=== PATIENT | female | born 1995 | race Caucasian/White ===

== ENCOUNTER 2018-06-05 02:43 | Emergency (ER) | payer SELFPAY ==
[2018-06-05 02:46] VITALS: BP 148/81; PULSE 108; RESP 18; TEMP 36.9; O2SAT 97; BMI 43.4
[2018-06-05 02:49] VITALS: O2SAT 99
[2018-06-05 03:00] VITALS: O2SAT 100
[2018-06-05 03:01] VITALS: RESP 18; O2SAT 99
--- NOTE | 2018-06-05 03:05 | EKG12_ITS ---
Test Reason : SOB Blood Pressure : / mmHG Vent. Rate : 107 BPM Atrial Rate : 107 BPM P-R Int : 150 ms QRS Dur : 086 ms QT Int : 330 ms P-R-T Axes : 033 051 039 degrees QTc Int : 440 ms Sinus tachycardia Otherwise normal ECG Confirmed by CORINNA COLLADO, KUN ([id number]), editorial assistant AIDEN BELLA ([id number] on 06/07/2018 1:16:55 PM Referred By: MARCE Confirmed By:KUN WEINSTEIN MD
[2018-06-05 03:28] VITALS: PULSE 123; RESP 18
[2018-06-05] MEDS: Ipratropium/Albuterol Sulfate 3 ML AMPUL.NEB INHALATION (03:28)
[2018-06-05] MEDS: Albuterol 2.5 MG/3 ML VIAL.NEB. INHALATION ×3 (03:28)
[2018-06-05 03:53] LABS: Absolute Lymphocyte Count 2.92 X10^3/ul (0.83-4.51); Absolute Neutrophil Count 10.7 X10^3/uL (2.0-7.7); Basophil# 0.07 X10^3/uL; Basophil% 0.5 % (0-1); Eosinophils% 1.3 % (0-5); Hematocrit 39.1 % (37-47); Hemoglobin 13.4 g/dl (12.0-15.0); Lymphocyte # 2.92 X10^3/ul (4.0); Lymphocyte % 19.5 % (19-41); Mean Corp Hgb Conc 34.3 g/gl (32-36); Mean Corpuscular Hgb 28.8 pg (27.0-32.0); Mean Corpuscular Volume 84.1 fL (81-99); Mean Platelet Vol. 10.7 fl (6.2-12.0); Monocyte# 1.07 X10^3/uL; Monocyte% 7.1 % (0-10); Neutrophil # 10.67 X10^3/uL (2.7-7.7); Neutrophil % 71.3 % (47-70); POSITIVE COUNT NO; POSITIVE DIFFERENTIAL NO; POSITIVE MORPHOLOGY NO; Platelet Count 278 K/mm3 (150-450); RBC Distribution Width CV 12.4 % (11.6-14.6); RBC Distribution Width SD 37.7 fl (35.1-43.9); Red Blood Count 4.65 M/mm3 (4.2-5.4)
[2018-06-05 04:03] LABS: D-Dimer Quantitative (DVT/PE) 0.39 FEU/ug/m (0.27-0.49)
[2018-06-05 04:05] LABS: Anion Gap 10 (5-15); BUN 18 mg/dL (7-18); BUN/Creat Ratio 19.8 RATIO (10-20); Calcium,Total 8.9 mg/dL (8.5-10.1); Chloride 104 mmol/L (98-107); Creatinine, Serum 0.91 mg/dL (0.55-1.02); EST Glomerular Filtration Rate 80 mL/min (>60); Est Glom Filt Rate - Afr Amer 97 mL/min (>60); Estimated Creatinine Clearance 85.78 ml/min; Glucose 122 mg/dL (74-106); Potassium 3.6 mmol/L (3.5-5.1); Sodium Level 141 mmol/L (136-145)
[2018-06-05 04:11] LABS: Pregnancy, Serum, hCG Quali. NEGATIVE Negative (0-9 Nonpreg)
--- NOTE | 2018-06-05 04:35 | ED.DEP ---
ED Disposition - Plan for ED Patient: Chief Complaint: Shortness of Breath Instructions: ED Upper Resp Infec No Abx Tx Referrals: Care Physician,No Primary [Primary Care Provider] - Ibis Domínguez MD [STAFF PHYSICIAN] -
--- NOTE | 2018-06-05 04:37 | ED.VISSUMM ---
- ER Visit Summary Date of Service: 06/05/18 Chief Complaint: Shortness of breath, cough History of Present Illness: The patient is a 22 F presenting with shortness of breath, cough. Patient states this started earlier tonight. She has had a dry cough. She denies fever. Denies chest pain. No PE/DVT risk factors. She has had similar symptoms in the past, denies history of asthma. No other complaints. Physical Examination: Vitals are stable. Patient is afebrile. Alert no acute distress. 99% on room air HEENT exam is unremarkable. Neck is supple. Lungs are expiratory wheezing bilaterally. Heart is regular and tachycardic Abdomen is soft nontender nondistended. Extremities are unremarkable. Skin is warm and dry. No focal neurologic deficit. Remainder of exam is unremarkable. Emergency Department Course and Treatment: Patient given albuterol Atrovent aerosols with improvement. Chest x-ray shows no acute process. CBC shows white count of 15.0. Chemistries unremarkable. D-dimer is negative. HCG negative. EKG is sinus rate of 107. Following aerosol treatments, patient feels much improved. She is requesting to go home. Her lungs are clear to auscultation bilaterally. She is advised to follow-up with Dr. Domínguez communications editor for no doc. Advised to return to ED for any worsening complaints. Disposition: Discharge home Impression: URI This note was generated with ibeatyou dictation software. It may contain incorrect words, spelling, and punctuation that were not noted in review of the chart prior to signing ED Disposition - Plan for ED Patient: Chief Complaint: Shortness of Breath Instructions: ED Upper Resp Infec No Abx Tx Referrals: Ibis Domínguez MD [STAFF PHYSICIAN] - Care Physician,No Primary [Primary Care Provider] -
[2018-06-05 04:59] VITALS: BP 153/74; PULSE 127; RESP 20; O2SAT 97
--- NOTE | 2018-06-06 13:56 | CM.ED ---
ED CALLBACK: Follow-up call placed to patient with no answer. Voicemail left with return contact information.
== END 2018-06-05 05:00 | disposition home or self-care (01) ==
LOC: ED 04:01
PROVIDERS: Emergency Provider Emergency Medicine
DX: J06.9 Acute upper respiratory infection, unspecified (principal)
CPT/HCPCS: 71045; 80048; 84703; 85025; 85379; 93005; 94640; 94760; 99285; A4216

== ENCOUNTER → 2022-02-09 | Outpatient (CLI) | payer MEDICAID, SELFPAY ==
[2022-02-09 15:43] LABS: Amphetamine Urine VISTA NEGATIVE (<1000 ng/mL); Barbiturate Urine VISTA NEGATIVE (< 200 ng/mL); Benzodiazepine Urine VISTA NEGATIVE (< 200 ng/mL); Cocaine Urine VISTA NEGATIVE (< 300 ng/mL); Ecstacy Urine VISTA NEGATIVE (< 500 ng/mL); Methadone Urine VISTA NEGATIVE (< 300 ng/mL); PCP Urine VISTA NEGATIVE (< 25 ng/mL); THC Urine VISTA POSITIVE (< 50 ng/mL); Vista UDS pH Range 4
[2022-02-12 06:08] LABS: Chlamydia By Nucleic Acid AMP Negative (Negative)
[2022-02-12 16:35] LABS: Gonococcus By Nucleic Acid AMP Negative (Negative)
[2022-02-13 16:17] LABS: HPV Reflexed? NOT INDICATED
== END | disposition home or self-care (01) ==
LOC: LABSPEC 02-10 06:47
PROVIDERS: Referring Provider Obstetrics & Gynecology; Visit Provider Obstetrics & Gynecology
DX: Z34.90 Encounter for supervision of normal pregnancy, unspecified, unspecified trimester (principal)
CPT/HCPCS: 80307; 87086; 87088; 87491; 87591; 88175; G0145

== ENCOUNTER → 2022-03-09 | Outpatient (CLI) | payer MEDICAID, SELFPAY ==
[2022-03-09 16:02] LABS: Absolute Lymphocyte Count 2.47 X10^3/uL (0.83-4.51); Absolute Neutrophil Count 9.9 X10^3/uL (2.0-7.7); Basophil# 0.05 X10^3/uL; Basophil% 0.4 % (0-1); Eosinophil# 0.38 X10^3/uL; Eosinophils% 2.8 % (0-5); Hematocrit 37.7 % (37-47); Hemoglobin 13.2 g/dL (12.0-15.0); Lymphocyte # 2.47 X10^3/ul (0.83-4.51); Lymphocyte % 18.2 % (19-41); Mean Corpuscular Volume 85.7 fL (81-99); Mean Platelet Vol. 11.2 fl (6.2-12.0); Monocyte# 0.71 X10^3/uL; Monocyte% 5.2 % (0-10); NRBC Flagged by Analyzer 0 % (0-5); Neutrophil # 9.93 X10^3/uL (2.7-7.7); Platelet Count 300 K/mm3 (150-450); RBC Distribution Width CV 12.9 % (11.6-14.6); RBC Distribution Width SD 39.8 fl (35.1-43.9); White Blood Count 13.6 K/mm3 (4.4-11.0)
[2022-03-09 16:10] LABS: Glucose Challenge Gest 1H 50g 147 mg/dL (70-140)
[2022-03-09 17:18] LABS: HIV - WCH Non-Reactive (Nonreactive); Hepatitis B Surface Antigen Non-Reactive (Nonreactive); Hepatitis C Antibody Non-Reactive (Nonreactive); Rubella IgG Reactive (Nonreactive); Syphilis Antibodies Non-reactive
[2022-03-09 17:20] LABS: NATERA MAILED SPECIMEN
== END | disposition home or self-care (01) ==
LOC: PAVLAB 15:09
PROVIDERS: Referring Provider Obstetrics & Gynecology; Visit Provider Obstetrics & Gynecology
DX: Z34.81 Encounter for supervision of other normal pregnancy, first trimester (principal); Z31.430 Encounter of female for testing for genetic disease carrier status for procreative management
CPT/HCPCS: 36415; 82950; 85025; 86703; 86762; 86780; 86803; 86850; 86900; 86901; 87340

== ENCOUNTER → 2022-03-16 | Outpatient (CLI) | payer MEDICAID, SELFPAY ==
[2022-03-16 10:44] LABS: Glucose GTT-Gestation. Fasting 97 mg/dL (<105)
[2022-03-16 13:30] LABS: Glucose GTT-Gestational 2 Hr 161 mg/dL (<165)
[2022-03-16 13:30] LABS: Glucose GTT-Gestational 1 Hr 165 mg/dL (<190)
[2022-03-16 13:52] LABS: Glucose GTT-Gestational 3 Hr 107 L (<145)
== END | disposition home or self-care (01) ==
LOC: LAB 10:02
PROVIDERS: Referring Provider Obstetrics & Gynecology; Visit Provider Obstetrics & Gynecology
DX: Z13.1 Encounter for screening for diabetes mellitus (principal)
CPT/HCPCS: 36415; 82951; 82952

== ENCOUNTER 2022-03-23 15:49 | Outpatient (RCR) | payer MEDICAID, SELFPAY | END 2022-03-26 23:59 | LOC: DC 15:49 | PROVIDERS: Visit Provider Obstetrics & Gynecology | DX: O24.419 Gestational diabetes mellitus in pregnancy, unspecified control (principal); Z3A.00 Weeks of gestation of pregnancy not specified | CPT/HCPCS: 97802 ==

== ENCOUNTER → 2022-03-23 | Outpatient (CLI) | payer MEDICAID, SELFPAY ==
--- NOTE | 2022-03-23 09:19 | EKG12_ITS ---
Test Reason : GEST DIABETES Blood Pressure : / mmHG Vent. Rate : 089 BPM Atrial Rate : 089 BPM P-R Int : 144 ms QRS Dur : 082 ms QT Int : 370 ms P-R-T Axes : 024 034 025 degrees QTc Int : 450 ms Normal sinus rhythm Normal ECG Confirmed by OLEGARIO COLLADO, PAULINE ([id number]), design editor VONDA JUSTIN ([id number]) on 03/24/2022 8:29:15 AM Referred By: Leonor Finch Confirmed By:PAULINE MELVIN MD
[2022-03-23 10:55] LABS: Hemoglobin A1c 5.5 % (3.8-5.6)
== END | disposition home or self-care (01) ==
PROVIDERS: Referring Provider Obstetrics & Gynecology; Visit Provider Obstetrics & Gynecology
DX: O24.419 Gestational diabetes mellitus in pregnancy, unspecified control (principal); Z3A.00 Weeks of gestation of pregnancy not specified
CPT/HCPCS: 36415; 83036; 93005

== ENCOUNTER 2022-04-13 13:00 | Outpatient (RCR) | payer MEDICAID, SELFPAY | END 2022-04-26 23:59 | LOC: DC 13:00 | PROVIDERS: Visit Provider Obstetrics & Gynecology | DX: O24.419 Gestational diabetes mellitus in pregnancy, unspecified control (principal); Z3A.00 Weeks of gestation of pregnancy not specified | CPT/HCPCS: 97803 ==

== ENCOUNTER 2022-06-27 20:16 | Inpatient (IN) | payer MEDICAID, SELFPAY ==
[2022-06-27] VITALS (9 sets, daily range): BP systolic 114–123; BP diastolic 59–65; PULSE 78–89; RESP 15–18; TEMP 36.4–36.6; O2SAT 93–99
[2022-06-27 20:57] LABS: Hematocrit 31.4 % (37-47); Hemoglobin 10.3 g/dL (12.0-15.0); Mean Corp Hgb Conc 32.8 g/dL (32-36); Mean Corpuscular Hgb 29.6 pg (27.0-32.0); Mean Corpuscular Volume 90.2 fL (81-99); Mean Platelet Vol. 11.1 fl (6.2-12.0); Platelet Count 283 K/mm3 (150-450); RBC Distribution Width CV 12.9 % (11.6-14.6); RBC Distribution Width SD 42.1 fl (35.1-43.9); Red Blood Count 3.48 M/mm3 (4.2-5.4); White Blood Count 21.1 K/mm3 (4.4-11.0)
--- NOTE | 2022-06-27 21:00 | RAD_ITS ---
STUDY: X-RAY - ABDOMEN/PELVIS REASON FOR EXAM: Female, 26 years old. Post surgery no pre count done TECHNIQUE: Single AP view of the abdomen / pelvis. COMPARISON: None. RAD/Abdomen Single View (Portable) IMPRESSION: No radiopaque foreign body. Partially visualized bowel gas pattern is nonobstructive. Electronically Signed: Deshaun Duron MD at 23:30 EDT ,
[2022-06-27 21:06] LABS: Partial Thromboplast Time 30.8 Seconds (24.1-36.2)
--- NOTE | 2022-06-27 21:12 | HP.PCM.OB_ITS ---
HPI - General General Date of Admission: 06/27/22 HPI Narrative LUZ MARIA BARRIOS, is a 26 F who presents with acute vaginal bleeding and upon initial evaluation heart rate was noted to be in the 70s therefore the patient was taken back immediately for an emergent delivery. Patient states that she had some spotting early in the day and then this evening bleeding got heavier and she started having regular cramping so she presented to the hospital for evaluation. Maternal Data Information ADAL Calculator Estimated Delivery Date Method Current WG Current Estimate 09/25/22 Ultrasound #1 27w 1d Other Estimates 09/12/22 LMP (Certain) 29w 0d PFSH PFSH Medical History Abnormal glucose affecting Cat scratch of cheek Marijuana abuse Home Medications prenat.vits,glory,yep-vxpf-hvikj 1 tab PO DAILY 02/02/22 [History Last Taken Unknown] Allergy/AdvReac Type Severity Reaction Status Date / Time pecan nut AdvReac Anaphylaxis Verified 05/04/22 14:06 Family History Brother Asthma Hemophilia Grandmother Diabetes Surgical History History of tonsillectomy Social History adopted: No household members: spouse current occupational status: employed current occupation: [employer] pets and animals: No Smoking Status: Never smoker alcohol intake: never substance use type: marijuana and other details: not since caffeine: Yes (limited since ) do you feel safe at home: Yes additional social history: Duglas Willoughbyfrancisco-spouse History 1 Elective abortions Hx Para Spontaneous abortions Hx # Term Pregnancies Ectopic pregnancies Hx # Pregnancies Multiple births # of living children Visit Details Expected Delivery Route/Plan Labor Preferences- CB/BF classes: [] labor support person: [] labor intervention preferences: [] pain management options preferred: [] cut cord/dad catch: [] : [] PP control planned: [] discussed possible routes of delivery and associated risks: [] special requests: [] Plans Covid status: discussed Flu vaccine: discussed Tdap vaccine: [] Rhogam: [] LARC form signed: [] Problem list reviewed and updated with the most current plan of care details and appropriate orders placed. Relevant counseling for the gestational age provided. Continue routine care and follow up unless otherwise noted in visit notes/problem list details OB Flowsheet Initial Weight: Not Recorded Date -?-?-?-?-?-?-?-?-?-?-?-?- EGA Weight BP Urine Prot -?-?-?-?-?-?-?-?-?-?-?-?- Glucose FHR FuHt Pres Dilation -?-?-?-?-?-?-?-?-?-?-?-?- Effaced St Visit Note 02/09/22 -?-?-?-?-?-?-?-?-?-?-?-?- 7w 3d 244 lb 134/84 -?-?-?-?-?-?-?-?-?-?-?-?- 150 -?-?-?-?-?-?-?-?-?-?-?-?- SM- no vb lof go od fm no regular ctx SM- CRL 1.16cm NOT cons with LMP 03/09/22 -?-?-?-?-?-?-?-?-?-?-?-?- 11w 3d 244 lb 120/82 -?-?-?-?-?-?-?-?-?-?-?-?- 170 -?-?-?-?-?-?-?-?-?-?-?-?- SM- no vb crampi ng 04/06/22 -?-?-?-?-?-?-?-?-?-?-?-?- 15w 3d 230 lb 8 oz 126/64 Nega tive -?-?-?-?-?-?-?-?-?-?-?-?- Negative 157 -?-?-?-?-?-?-?-?-?-?-?-?- MH-No VB. Feels well. FOB having genetic testing today. MFM US ordered. 05/04/22 -?-?-?-?-?-?-?-?-?-?-?-?- 19w 3d 226 lb 8 oz 110/74 Nega tive -?-?-?-?-?-?-?-?-?-?-?-?- Negative 150 -?-?-?-?-?-?-?-?-?-?-?-?- SM- no vb lof go od fm no regular ctx discussed treatment center referral due to factor IX deficiency carrier and having a boy, genetic screening needed 06/05/22 -?-?-?-?-?-?-?-?-?-?-?-?- 24w 0d 218 lb 124/76 -?-?-?-?-?-?-?-?-?-?-?-?- 155 24 -?-?-?-?-?-?-?-?-?-?-?-?- SM- no vb lof go od fm no regular ctx SM- no vb lof good fm no reg ular ctx BS well controlled. SM- no vb lof good fm no reg ular ctx BS well controlled. discussed weight loss and calorie counting, macro. discussed WILEY due to possibility of hemophilia. 06/27/22 -?-?-?-?-?-?-?-?-?-?-?-?- 27w 1d -?-?-?-?-?-?-?-?-?-?-?-?- -?-?-?-?-?-?-?-?-?-?-?-?- NST FHR Rate Baby A Baseline: 75 confirmed to be 60 in OR on US Accelerations:: None Decelerations:: Prolonged NST Reactive:: Non-Reactive FHR Category:: Category III Uterine Activity:: not able to discern ROS Constitutional Constitutional: Reports systems reviewed and no addt'l complaints, except as documented ENT HEENT: Reports systems reviewed and no addt'l complaints, except as documented Cardiovascular Cardiovascular: Reports systems reviewed and no addt'l complaints, except as documented Respiratory/Chest Respiratory/Chest: Reports systems reviewed and no addt'l complaints, except as documented Gastrointestinal Gastrointestinal: Reports systems reviewed and no addt'l complaints, except as documented and nausea; Denies abdominal pain Genitourinary Genitourinary: Reports systems reviewed and no addt'l complaints, except as documented, contractions Details: present and frequency (regular ) and movement Details: present Musculoskeletal Musculoskeletal: Reports systems reviewed and no addt'l complaints, except as documented Integumentary Integumentary: Reports as per HPI Neurologic Neurologic: Reports systems reviewed and no addt'l complaints, except as documented Endocrine Endocrinology: Reports systems reviewed and no addt'l complaints, except as documented Vital Signs Vital Signs Vital Signs: 06/27/22 20:05 06/27/22 20:05 Pulse Rate 79 Pulse Ox 98 Physical Exam Const alert, oriented x3 and healthy appearing Constitutional Narrative: uncomfortable with contractions HEENT normocephalic and moist oral mucous membranes Head and Scalp: atraumatic Lymph Lymphatic: no lymphadenopathy noted Chest inspection of chest normal Resp normal respiratory effort Cardio regular rate GI soft to palpation and non-tender Psych mental status grossly normal Labs Labs Labs: Blood Type A POSITIVE Antibody Screen NEGATIVE Hct 31.4 % (37-47) L Hgb 10.3 g/dL (12.0-15.0) L Syphilis Total Ab Non-reactive Rubella IgG Antibody Reactive (Nonreactive) Hep Bs Antigen Non-Reactive (Nonreactive) Chlamydia DNA (JUSTIN) Negative (Negative) Neisseria gonorrhoeae DNA (JUSTIN) Negative (Negative) HIV 1&2 Antibody Non-Reactive (Nonreactive) Glucose 1 Hr 50 gm 147 mg/dL (70-140) H Assessment & Plan (1) Supervision of high-risk : COMMENT: PRR ADAL:09/25/22 boy Sp:Duglas Harris (2) 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 recommend delivery in [place].. s/p genetic counseling with treatment center since having a boy, may limit delivery modality. await recommendations. FOB tested 04/06/22 neg. 09/07 (3) Diabetes: COMMENT: diet controlled. Dx 1TM. Stable. Seeing Dr Tang (4) Marijuana abuse: COMMENT: Positive 02/09/22 (5) Family history of defect: COMMENT: FOB club foot (6) Obesity affecting : COMMENT: 1 tm GCT, encouraged healthy weight gain (7) : QUALIFIERS: Weeks of gestation: 24 weeks Qualified Code(s): Z3A.24 - 24 weeks gestation of COMMENT: nl anatomy, Positive IX def gene. s/p genetic counseling. (8) labor in second trimester: (9) Placental abruption in second trimester: (10) Status post emergency section: COMMENT: 27 week acute vaginal bleeding abruption suspected PTL PLAN: Plan stat section due to abruption and PTL breech
--- NOTE | 2022-06-27 21:21 | OP.PCM_ITS ---
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 recommend delivery in [place].. s/p genetic counseling with treatment center since having a boy, may limit delivery modality. await recommendations. FOB tested 04/06/22 neg. 09/07 (6) Diabetes: COMMENT: diet controlled. Dx 1TM. Stable. Seeing Dr Tang (7) Marijuana abuse: COMMENT: Positive 02/09/22 (8) Family history of defect: COMMENT: FOB club foot (9) Obesity affecting : COMMENT: 1 tm GCT, encouraged healthy weight gain (10) : QUALIFIERS: Weeks of gestation: 24 weeks Qualified Code(s): Z3A.24 - 24 weeks gestation of COMMENT: nl anatomy, Positive IX def gene. s/p genetic counseling. 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 Upon initial evaluation heart rate was noted to be 75 and patient was having acute bleeding so the attending physician was called and immediately and arrived a few minutes after being called and met the patient in the operating room. Bedside ultrasound confirmed heart rate was 60. After IV was placed the patient was placed under general anesthesia to proceed with a stat due to vaginal bleeding and bradycardia. Splash Betadine prep was performed.. Pfannenstiel skin incision was made with the scalpel and carried through to the underlying layer of fascia with the scalpel. Fascia was nicked in the midline and the incision extended laterally. The peritoneum was entered digitally. The incision was stretched and a low transverse uterine incision was made with the scalpel. The buttox was delivered atraumatically and the right and left legs were swept anteriorly and delivered, followed by the body and the arms which were swept anteriorly and delivered. Gentle downward pressure was placed on the face to flex the head and fundal pressure gently applied and the head delivered thereafter without complication. cord was clamped and cut and passed to nurse. placenta was double clamped but of the clamps sprung open and cord gases were unable to be obtained. The placenta was delivered spontaneously immediately following and was noted to be intact with a marginal abruption and the placenta was noted to have a three-vessel cord. The uterus was exteriorized cleared of all clots and debris, and the incision was closed in a double layer closure using #1 Monocryl. The ovaries and fallopian tubes were noted to be within normal limits. The uterus was returned to the maternal abdomen and gutters were cleared of all clots and debris. The peritoneum was closed with 3-0 Monocryl in a running fashion. Gloves were changed prior to fascial closure. Fascia was closed with 0 PDS in a running fashion. Subcutaneous tissue was copiously irrigated and the skin was closed with 3-0 Monocryl in a subcuticular fashion. Mepilex dressing was applied without complication. Patient was taken to recovery in stable condition. Presentation: Positive for Complete Breech Amniotic Membrane Rupture Type: Artificial Amniotic Fluid Description: Bloody Placenta [facility] Cord Vessel Description: 3 Vessels Cord Entanglement: Around neck x 1, loose Infant A Gender: Male Delayed Cord Clamping: No Complications Risks of Surgery Discussed w/Patient: Bleeding, Infection, Need for Future C- Sections and Injury to surrounding structure(s) including bowel and bladder Complications: none Vaginal Delivery Complication Complications: None Admit VTE Documentation VTE Present on Admission: No VTE Mechan Device Prophylaxis: SCD's Procedures Urinary/Genital [id number]: [id number] delivery+PP Care([facility])
--- NOTE | 2022-06-27 21:31 | DCINST_ITS ---
Discharge Instructions Diet Discharge Diet: No restrictions Activity Discharge Activity: Return to Normal Activity, May Drive (when pain free and off narcotic pain meds), May Shower and May Take a Tub Bath (in 4 weeks) May resume sexual activity in: 6 weeks Weight Bearing Status: Full weight bearing Lifting Restrictions: under 30 lbs for 6 weeks Dressing / Incision Call your doctor if your incision/area has: Continuous Slow Oozing, Sudden Increased Bleeding, Increased Pain/ Swelling, Increased Redness, Foul Smelling Discharge and - Call your doctor if you observe: Fever of 101 or Higher, Using more than 1 pad per hour, Shortness of breath, Chest pain and Uncontrolled pain Suture Line Care: Avoid Pulling/Pushing and Avoid Pinching/Bending Change Dressing in: 1 week (leave open to air after removed) Remove Dressing in: 1 week (if present) Cleanse incision/area with: Soap & Water and Keep Dressing Clean & Dry Follow Up Care Please Follow Up With: Leonor Finch MD When: Call to make an appointment with your doctor for a postop visit in 2 and 6 weeks. Test Results: Test results from this visit will be discussed in further detail at your follow- up appointment, if applicable. Discharge Plan Admission Admit Date/Time: 06/27/22 20:16 Attending Provider: Leonor Finch Primary Care Provider: Care PhysicianJory Primary Discharge Orders/Prescriptions Prescriptions: New oxycodone-acetaminophen [Percocet] 5-325 mg tablet 1 tab PO Q6H PRN (Reason: pain) 7 Days Qty: 20 0RF naproxen [naproxen] 500 mg tablet 500 mg PO BID PRN PRN (Reason: Pain) Qty: 30 1RF No Action prenat.vits,glory,vzj-qggs-sykhd Tablet 1 tab PO DAILY Referrals / Follow Up: Care PhysicianJory Primary [Primary Care Provider] - Disposition Disposition (needs filled in before D/C Order can be placed): Home, Self Care
[2022-06-27] MEDS: Oxytocin 30 units/NS 500 ml 30 UNITS/500 ML IV.SOLN 167 UNITS IV (22:20)
[2022-06-27] MEDS: Ketorolac 30 MG/ML Syringe IV (22:31)
[2022-06-27] MEDS: Ondansetron 4 MG/2 ML Vial IV (23:11)
[2022-06-27 23:21] LABS: Bedside Glucose 160 mg/dL (74-106)
[2022-06-27] MEDS: HYDROmorphone 1 MG/ML Syringe IV (23:35)
[2022-06-28] VITALS (10 sets, daily range): BP systolic 95–124; BP diastolic 54–68; PULSE 52–83; RESP 16–18; TEMP 36.4–36.9; O2SAT 95–99; BMI 35.6
[2022-06-28 00:56] LABS: Bedside Glucose 180 mg/dL (74-106)
[2022-06-28] MEDS: Insulin Lispro 100 UNIT/ML INSULN.PEN SC ×3 (01:09→17:52)
[2022-06-28] MEDS: Lactated Ringers 1,000 ML 100 ML IV (01:12)
[2022-06-28] MEDS: Acetaminophen 500 MG Tablet 1000 MG PO ×4 (01:29→19:34)
[2022-06-28 04:23] LABS: Amphetamine Urine VISTA NEGATIVE (<1000 ng/mL); Barbiturate Urine VISTA NEGATIVE (< 200 ng/mL); Benzodiazepine Urine VISTA NEGATIVE (< 200 ng/mL); Cocaine Urine VISTA NEGATIVE (< 300 ng/mL); Ecstacy Urine VISTA NEGATIVE (< 500 ng/mL); Methadone Urine VISTA NEGATIVE (< 300 ng/mL); PCP Urine VISTA NEGATIVE (< 25 ng/mL); THC Urine VISTA NEGATIVE (< 50 ng/mL); Vista UDS pH Range 5
[2022-06-28] MEDS: Ketorolac 30 MG/ML Syringe IV ×3 (04:28→17:14)
[2022-06-28] MEDS: Cefazolin 1 GM/50 ML BAG IV ×2 (04:48→12:48)
[2022-06-28 04:56] LABS: Hematocrit 30.3 % (37-47); Hemoglobin 10.1 g/dL (12.0-15.0); Mean Corp Hgb Conc 33.3 g/dL (32-36); Mean Corpuscular Hgb 30.1 pg (27.0-32.0); Mean Corpuscular Volume 90.4 fL (81-99); Mean Platelet Vol. 11.1 fl (6.2-12.0); Platelet Count 240 K/mm3 (150-450); RBC Distribution Width CV 12.9 % (11.6-14.6); Red Blood Count 3.35 M/mm3 (4.2-5.4); White Blood Count 25.3 K/mm3 (4.4-11.0)
[2022-06-28 05:11] LABS: Bedside Glucose 157 mg/dL (74-106)
[2022-06-28 07:40] LABS: Bedside Glucose 133 mg/dL (74-106)
[2022-06-28] MEDS: Prenatal Vits Tablet 1 TABLET PO (10:44)
[2022-06-28] MEDS: Senna/Docusate Sodium 1 Tablet PO (10:44)
[2022-06-28] MEDS: FLU VACC QS2022-23(6MOS UP)/PF 60 MCG/0.5 ML SYRINGE IM (10:45)
[2022-06-28] MEDS: Enoxaparin 40 MG/0.4 ML Syringe SC (10:45)
--- NOTE | 2022-06-28 10:46 | PN.OBGYN_ITS ---
Subjective Subjective Patient doing well without complaints. Tolerating PO. Ambulating and voiding without difficulty. Denies chest pain, shortness of breath, calf pain/swelling, fevers, chills, lightheadedness. Objective Data Objective Data Vital Signs: Vital Signs Temp Pulse Resp BP Pulse Ox O2 Del Method O2 Flow Rate 97.9 F 67 18 95/56 L 96 Room Air 2 06/28/22 07:55 06/28/22 07:55 06/28/22 07:55 06/28/22 07:55 06/28/22 07:55 06/28/22 07:55 06/28/22 06:41 Oxygen Flow Rate (L/min) 2 Oxygen Delivery Method Room Air Weight: 220 lb 7.76 oz Body Mass Index (BMI) 35.6 Intake & Output: Intake and Output for Last 24 Hours 06/26/22 06/27/22 06/28/22 23:59 23:59 23:59 Intake Total 1151.67 / 1151.67 Output Total 1200 / 1200 Balance -48.33 / -48.33 Lab / Micro Data Result Diagrams: 06/28/22 04:47 Labs: Laboratory Results - last 24 hr 06/27/22 20:40: WBC 21.1 H, RBC 3.48 L, Hgb 10.3 L, Hct 31.4 L, MCV 90.2, MCH 29.6, MCHC 32.8, RDW Std Deviation 42.1, RDW Coeff of Jose J 12.9, Plt Count 283, MPV 11.1 06/27/22 20:40: PT 13.0, INR 1.0, APTT 30.8 06/27/22 20:40: Blood Type A POSITIVE, Antibody Screen NEGATIVE 06/27/22 22:27: POC Glucose 160 H 06/28/22 00:23: POC Glucose 180 H 06/28/22 04:00: Urine Opiates Screen POSITIVE H, Urine Methadone Screen NEGATIVE, Ur Barbiturates Screen NEGATIVE, Ur Phencyclidine Scrn NEGATIVE, Ur Amphetamines Screen NEGATIVE, MDMA (Ecstasy) Screen NEGATIVE, U Benzodiazepines Scrn NEGATIVE, Urine Cocaine Screen NEGATIVE, U Cannabinoids Screen NEGATIVE, Ur Drug Screen Comment 06/28/22 04:47: WBC 25.3 H, RBC 3.35 L, Hgb 10.1 L, Hct 30.3 L, MCV 90.4, MCH 30.1, MCHC 33.3, RDW Std Deviation 42.0, RDW Coeff of Jose J 12.9, Plt Count 240, MPV 11.1 06/28/22 04:47: POC Glucose 157 H 06/28/22 07:19: POC Glucose 133 H Radiography Diagnostic Testing: Radiology Impression KUB X-Ray 06/27/22 21:00 IMPRESSION: No radiopaque foreign body. Partially visualized bowel gas pattern is nonobstructive. Electronically Signed: Deshaun Duron MD at 23:30 EDT , ROS Constitutional Constitutional: Reports systems reviewed and no addt'l complaints, except as documented Cardiovascular Cardiovascular: Reports systems reviewed and no addt'l complaints, except as documented Respiratory/Chest Respiratory/Chest: Reports systems reviewed and no addt'l complaints, except as documented Gastrointestinal Gastrointestinal: Reports systems reviewed and no addt'l complaints, except as documented Physical Exam Const alert, oriented x3 and no apparent distress HEENT Head and Scalp: atraumatic Resp normal respiratory effort GI soft to palpation and non-tender Inspection: incision intact, healing well and drainage (none) Bimanual Exam - Vag & Uterus: uterus non-tender Uterus Palpation: uterus fundus firm (below Umbilicus) Assessment & Plan (1) Diabetes: COMMENT: diet controlled. Dx 1TM. Stable. 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 recommend delivery in [place].. s/p genetic counseling with treatment center since having a boy, may limit delivery modality. await recommendations. FOB tested 04/06/22 neg. 09/07 (3) Placental abruption in second trimester: (4) Status post emergency section: COMMENT: 27 week acute vaginal bleeding abruption suspected PTL PLAN: Plan s/p LTCS PPD # 1 1. routine post care 2. pumping 3. rh positive 4. rubella immune
[2022-06-28] MEDS: 0.9% Saline Lock 10 ML Syringe IV ×4 (10:47→17:14)
[2022-06-28] MEDS: HYDROmorphone 1 MG/ML Syringe IV (12:58)
[2022-06-28 13:16] LABS: Bedside Glucose 110 mg/dL (74-106)
--- NOTE | 2022-06-28 14:15 | NURSING ---
Pt did not feel well after dilaudid, VSS. Cool wash cloth placed on pt head and pt laid back in bed. Feeling improved when RN left room.
[2022-06-28] MEDS: Ondansetron 4 MG/2 ML Vial IV (14:23)
[2022-06-28 17:45] LABS: Bedside Glucose 153 mg/dL (74-106)
[2022-06-28 22:15] LABS: Bedside Glucose 108 mg/dL (74-106)
[2022-06-28] MEDS: Naproxen 500 MG Tablet PO (22:34)
[2022-06-29] MEDS: Acetaminophen 500 MG Tablet 1000 MG PO ×2 (02:43→08:46)
[2022-06-29 02:45] VITALS: BP 103/60; PULSE 67; RESP 16; TEMP 36.1; O2SAT 96
[2022-06-29] MEDS: Naproxen 500 MG Tablet PO (06:10)
[2022-06-29 07:15] LABS: Bedside Glucose 92 mg/dL (74-106)
--- NOTE | 2022-06-29 07:54 | PCM.PN.OB ---
Subjective Subjective Patient doing well without complaints. Tolerating PO. Ambulating and voiding without difficulty.pumping. Denies chest pain, shortness of breath, calf pain/swelling, fevers, chills, lightheadedness. Objective Data Objective Data Vital Signs: Vital Signs Temp Pulse Resp BP Pulse Ox O2 Del Method O2 Flow Rate 97.0 F L 67 16 103/60 96 Room Air 2 06/29/22 02:45 06/29/22 02:45 06/29/22 02:45 06/29/22 02:45 06/29/22 02:45 06/29/22 02:45 06/28/22 06:41 Oxygen Flow Rate (L/min) 2 Oxygen Delivery Method Room Air Weight: 220 lb 7.76 oz Body Mass Index (BMI) 35.6 Intake & Output: Intake and Output for Last 24 Hours 06/27/22 06/28/22 06/29/22 23:59 23:59 23:59 Intake Total 1201.67 / 1201.67 Output Total 3100 / 3100 Balance -1898.33 / -1898.33 Lab / Micro Data Result Diagrams: 06/28/22 04:47 Labs: Laboratory Results - last 24 hr 06/28/22 12:52: POC Glucose 110 H 06/28/22 17:21: POC Glucose 153 H 06/28/22 21:56: POC Glucose 108 H 06/29/22 06:54: POC Glucose 92 ROS Constitutional Constitutional: Reports systems reviewed and no addt'l complaints, except as documented Cardiovascular Cardiovascular: Reports systems reviewed and no addt'l complaints, except as documented Respiratory/Chest Respiratory/Chest: Reports systems reviewed and no addt'l complaints, except as documented Gastrointestinal Gastrointestinal: Reports systems reviewed and no addt'l complaints, except as documented Physical Exam Const alert, oriented x3 and no apparent distress HEENT Head and Scalp: atraumatic Resp normal respiratory effort GI soft to palpation and non-tender Inspection: incision intact, healing well and drainage (none) Bimanual Exam - Vag & Uterus: uterus non-tender Uterus Palpation: uterus fundus firm (below Umbilicus) Assessment & Plan (1) Diabetes: COMMENT: SSI humalog ordered achs. previously diet controlled. Dx 1TM. Stable. 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 recommend delivery in [place].. s/p genetic counseling with treatment center since having a boy, may limit delivery modality. await recommendations. FOB tested 04/06/22 neg. 09/07 (3) Placental abruption in second trimester: (4) Status post emergency section: COMMENT: 27 week acute vaginal bleeding abruption suspected PTL (5) delivery delivered: COMMENT: stat LTCS boy Stefano SM 27 vag bleed abruption PTL PLAN: Plan s/p LTCS PPD # 2 1. routine post care 2. pumping 3. rh positive 4. rubella immune
[2022-06-29] MEDS: Senna/Docusate Sodium 1 Tablet PO (08:47)
[2022-06-29 08:59] VITALS: BP 113/67; PULSE 80; RESP 18; TEMP 36.8; O2SAT 96
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
== END 2022-06-29 11:50 | disposition home or self-care (01) | DRG 540 ==
LOC: WPOUT 21:06 → WP 21:06
PROVIDERS: Admitting Provider Obstetrics & Gynecology; Visit Provider Obstetrics & Gynecology
DX: O77.9 Labor and delivery complicated by fetal stress, unspecified (principal); O24.12 Pre-existing type 2 diabetes mellitus, in childbirth; O60.12X0 Preterm labor second trimester with preterm delivery second trimester, not applicable or unspecified; E11.9 Type 2 diabetes mellitus without complications; F12.10 Cannabis abuse, uncomplicated; O32.1XX0 Maternal care for breech presentation, not applicable or unspecified; O99.324 Drug use complicating childbirth; Z3A.24 24 weeks gestation of pregnancy; Z37.0 Single live birth; Z82.79 Family history of other congenital malformations, deformations and chromosomal abnormalities; Z14.8 Genetic carrier of other disease
CPT/HCPCS: 59050; 74018; 80307; 82962; 85027; 85610; 85730; 86850; 86900; 86901; J7120; 90686; A4216; J2405